=== PATIENT | male | born 1985 | race Caucasian/White ===

== ENCOUNTER 2021-10-20 19:17 | Emergency (ER) | payer SELFPAY ==
--- NOTE | ~2021-10-20 | XR_ITS ---
EXAM: [id number] HISTORY: KNI. ANT/LAT CHEST RT RIB PAIN X 1 DAY. COMPARISON: None available FINDINGS: Lungs are clear. Normal cardiomediastinal silhouette. Regional bones and soft tissues are normal for age. IMPRESSION: No acute finding in the chest or right ribs. Reviewed, dictated and finalized at location K.
[2021-10-20 19:30] VITALS: BP 133/79; PULSE 96; RESP 18; TEMP 36.9; O2SAT 99
--- NOTE | 2021-10-20 19:57 | ED.GENADULT ---
HPI - General Adult General Chief complaint: Abdominal Pain Stated complaint: Right Side Pain Time Seen by Provider: 10/20/21 19:57 Source: patient, RN notes reviewed and old records reviewed Mode of arrival: ambulatory Limitations: no limitations History of Present Illness HPI narrative: 36-year-old male who presents to [facility] with complaints of small tender lump to the right upper abdomen which he noticed today.He states is painful especially with sitting or any palpation to area. Raised tissue area along rib region/ upper abdominal rectus region which patient reports has been increasing in intensity as the day has progressed. 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 Onset (ago): day(s) (today) Related Data Allergies Allergy/AdvReac Type Severity Reaction Status Date / Time No Known Allergies Allergy Mild Verified 12/06/20 13:07 Review of Systems Review of Systems: CONSTITUTIONAL: Denies fever, chills, or sweats. EYES: Denies visual changes, redness, or discharge. ENT: Denies rhinorrhea, congestion, sore throat, or otalgia. CARDIOVASCULAR: Denies chest pain, tenderness along right lower rib area, no palpitations, or edema. RESPIRATORY: Denies cough or dyspnea. GASTROINTESTINAL: tenderness along upper rectus muscle area,no nausea, vomiting, or diarrhea, GENITOURINARY: Denies dysuria or hematuria. SKIN: Denies rash or itching. MUSCULOSKELETAL: Denies back pain, joint pain, or myalgia. NEUROLOGIC: Denies headache, numbness, or weakness. PSYCHIATRIC: Denies anxiety or depression. All systems reviewed & are unremarkable except as noted in HPI and below [facility] Past Medical History Medical History Family history of aortic aneurysm STD exposure Family History Family History Mother Asthma Sibling Family history of heart disease in male family member before age 55 Father Acute myocardial infarction Social History Social History Smoking status: Former smoker Second hand tobacco smoke exposure: No Alcohol intake: current Comments At time of signature, agree with nursing past medical, surgical, social and family history. There is no relevant family history pertinent to the presenting complaint Exam Narrative: GENERAL: Well-appearing, well-nourished, and in mild acute distress due to pain with movement.. HEAD: Normocephalic, atraumatic. EYES: PERRLA and EOMI. ENT: Nares clear, no rhinorrhea or epistaxis. Mucous membranes moist.Tm's normal with good light reflex, throat pink with no lesions or exudates or tonsil swelling NECK: Supple.No Lymphadenopathy CHEST: Clear to auscultation. No respiratory distress.no cough or pain with deep breathing SAO2 99% on room air HEART: Regular rate and rhythm. No murmur heard. Normal peripheral pulses. ABDOMEN: Soft, tender along right lower anterior rib area at right upper rectus abdominal muscle area with 2cm rounded tissue which is tender to palpation., nondistended, normal active bowel sounds. EXTREMITIES: Normal range of motion. No edema. SKIN: Warm, dry, no rash. NEURO: No focal deficits. Alert and oriented x3. Course Course Level of Care: Express Care Visit Vital Signs Vital signs: Vital Signs Temperature 36.9 C 10/20/21 19:30 Pulse Rate 96 10/20/21 19:30 Respiratory Rate 18 10/20/21 19:30 Blood Pressure 133/79 10/20/21 19:30 Pulse Oximetry 99 10/20/21 19:30 Temperature 36.9 C 10/20/21 19:30 Pulse Rate 96 10/20/21 19:30 Respiratory Rate 18 10/20/21 19:30 Blood Pressure 133/79 10/20/21 19:30 Pulse Oximetry 99 10/20/21 19:30 Medical Decision Making Differential Diagnosis
== END 2021-10-20 21:10 | disposition home or self-care (01) ==
PROVIDERS: Emergency Provider Registered Nurse
DX: S39.011A Strain of muscle, fascia and tendon of abdomen, initial encounter (principal); X58.XXXA Exposure to other specified factors, initial encounter; Z87.891 Personal history of nicotine dependence
CPT/HCPCS: 71101; 99213; G0463

== ENCOUNTER 2022-10-29 08:53 | Emergency (ER) | payer OTHER, SELFPAY ==
[2022-10-29 09:00] VITALS: BP 136/70; PULSE 69; RESP 18; TEMP 36.6; O2SAT 99
--- NOTE | 2022-10-29 09:10 | ED.URI ---
HPI - URI/Sore Throat General Chief Complaint: Upper Respiratory Infection Stated Complaint: Body Aches/Sore Throat Source: patient and RN notes reviewed History of Present Illness HPI Narrative: 37-year-old male presents to urgent care complaints of a sore throat and body aches that started this morning. Patient reports some nausea this morning but states that is normal for him. Patient denies any fevers, chest pain, shortness of breath, vomiting congestion, or ear pain. Some parts of this dictation were generated by voice recognition software and may contain typographical and/or grammatical inaccuracies. Related Data Allergies Allergy/AdvReac Type Severity Reaction Status Date / Time No Known Allergies Allergy Mild Verified 12/06/20 13:07 Review of Systems Review of Systems: Pertinent positives and pertinent negatives per HPI. [facility] Past Medical History Medical History Family history of aortic aneurysm STD exposure Family History Family History Mother Asthma Sibling Family history of heart disease in male family member before age 55 Father Acute myocardial infarction Social History Social History Smoking status: Former smoker Second hand tobacco smoke exposure: No Alcohol intake: current Comments At the time of my signature, I reviewed and agree with the nursing past medical, surgical, social, and family history. There is no relevant family history pertinent to the patient complaint. Exam Narrative: GENERAL: This is a well-nourished, well-developed patient, in no apparent distress. HEAD: normocephalic, atraumatic. EYES: Sclera clear/white. Vision is grossly intact. EARS: External ears normal, auditory canals clear and without drainage, TMs normal without perforation. Hearing grossly intact. NOSE: External nose normal with no obvious nasal discharge, nares without redness, no rhinorrhea. THROAT: Mucous membranes moist, posterior pharynx erythemic. No exudate noted. NECK: Neck supple, non-tender without lymphadenopathy, masses or thyromegaly. CARDIOVASCULAR: Regular rate RESPIRATORY: No respiratory distress SKIN: warm, intact with no suspicious lesions or rash, good texture and turgor. NEURO: awake, alert, and oriented to person, place and time. There were no obvious focal neurologic abnormalities. Course Course Level of Care: Express Care Visit Vital Signs Vital signs: Vital Signs Temperature 97.8 F 10/29/22 09:00 Pulse Rate 69 10/29/22 09:00 Respiratory Rate 18 10/29/22 09:00 Blood Pressure 136/70 10/29/22 09:00 Pulse Oximetry 99 10/29/22 09:00 Oxygen Delivery Room Air 10/29/22 09:00 Temperature 97.8 F 10/29/22 09:00 Pulse Rate 69 10/29/22 09:00 Respiratory Rate 18 10/29/22 09:00 Blood Pressure 136/70 10/29/22 09:00 Pulse Oximetry 99 10/29/22 09:00 Oxygen Delivery Room Air 10/29/22 09:00 Reviewed MDM - URI/Sore Throat MDM Narrative Medical decision making narrative: Rapid strep is negative in the office; however we will send to the lab for confirmation; there is a small percentage chance that it can come back positive; if it is, we will call you in 2-3days; and your prescription will be call in to your pharmacy. However, there is NO indication for antibiotic at this time. -Increase your fluids and Vitamin C. -Oral rinses such as: Salt water gargles and/or may use topical anesthetic (eg. Chloraseptic spray) or lozenges to relieve dryness or throat pain. -Take tylenol and ibuprofen as needed for pain and fever as directed. -Frequent hand washing or hand nurse staff industrial is one of the best ways to prevent spread of infection. -Follow up with primary care provider in 2-3 days if condition is not improving or seek ER visit if your child starts breathing fast/has trouble breathing, is not drinki
== END 2022-10-29 09:41 | disposition home or self-care (01) ==
PROVIDERS: Emergency Provider Nurse Practitioner Family
DX: J02.9 Acute pharyngitis, unspecified (principal); Z87.891 Personal history of nicotine dependence
CPT/HCPCS: 87081; 87880; 99213; G0463

== ENCOUNTER 2023-03-18 02:38 | Day surgery (SDC) | payer OTHER, SELFPAY ==
[2023-03-09 14:57] VITALS: BMI 26.8
--- NOTE | 2023-03-09 15:04 | PC.NURSE ---
Report to the Outpatient Waiting Room, entrance under the green pavilion located off [facility], at time _1000_ on date 03/18/23_. Planned Procedure Time: _1200 . Time changes happen often and if your time is changed the preop area will call you the afternoon before. - You and your visitor will be asked to self-screen and do not enter if you have any COVID symptoms. - A mask is optional within the hospital at this time. Patients may have clear liquids (water, carbonated beverages, clear teas, apple juice) until 3 hours prior to surgery with a maximum of 20 ounces. - No food from midnight until time of surgery - Infants may have breast milk until 4 hours before surgery, formula 6 hours prior to surgery. - Children will be allowed to drink immediately following surgery. If applicable, please bring a bottle or sippy cup to assist with drinking. Juice, water, soda, and popsicles are readily available. For infants on formula, please bring formula the day of surgery. Pacifiers are allowed. Take the following medications with a SIP of water the morning of surgery: _DULOXETINE DO NOT STOP ANY OF YOUR OTHER PRESCRIPTION MEDICATIONS PRIOR TO SURGERY ?EXCEPT THE FOLLOWING Medications to discontinue per physician VITAMINS/ SUPPLIMENTS Date to take last dose 03/15/23 Please no make-up, nail puerto rican, hairspray, perfume, deodorant, or body powder the day of surgery. No jewelry (including any body piercings) or valuables the day of surgery, leave them at home. Please take a shower or bath the night before, or the morning of, surgery with HIBICLENS antibacterial soap. Wear comfortable, loose fitting clothing. Children are encouraged to wear pajamas. - Jewelry must be removed prior to entering the operating room. Rings and piercings that are not removed may be cut off. - The hospital will not accept responsibility for valuables. - Please leave all valuables, including medications, at home the day of surgery. If you are going home after surgery, a licensed city driver must drive you home. - NO public transportation without another adult if you receive anesthesia. - We recommend that an adult stay with you for 24 hours following discharge. - We also recommend that you do not drive, make important decision, drink alcoholic beverages, or take any drugs that were not prescribed by your health care provider for at least 24 hours after your discharge time. For Pediatric surgeries, we recommend two adults accompany the child home. Follow any additional instructions given to you from your surgeon. If you or anyone in your household have experienced Covid symptoms in the past week, please notify your surgeon or the nurse liaison at the phone number below for possible testing. Telephone instructions given to PATIENT_and asked if any additional questions and then verbalized understanding. Patient advised to call surgeon office or pre surgery nurse liaison [phone] if any additional questions.
[2023-03-18 10:03] VITALS: BP 134/74; PULSE 93; RESP 14; TEMP 36.8; O2SAT 98; BMI 26.9
[2023-03-18] MEDS: LACTATED RINGERS 1,000 ML 30 ML IV CONT (10:25)
--- NOTE | 2023-03-18 11:20 | WPDANESEPPF ---
Anes - Initial Pre Proc Eval Procedure: Operation Date: 03/18/23 12:00 Proposed Procedures p Excisional Biopsy Right Upper Abdominal Mass - Meaghan Da Silva MD Date/Time: 03/18/23 11:20 Surgeon: Meaghan Da Silva MD Pre Op Diagnosis: Rt Upper Abdominal Mass Patient Data Age: 37 Gender: M Height: 1.73 m Weight: 80.4 kg Last Vital Signs Temp 36.8 C 03/18/23 10:03 Pulse 93 03/18/23 10:03 Resp 14 03/18/23 10:03 BP 134/74 03/18/23 10:03 Pulse Ox 98 03/18/23 10:03 O2 Del Method Room Air 03/18/23 10:03 Allergies Allergy/AdvReac Type Severity Reaction Status Date / Time No Known Allergies Allergy Mild Verified 03/18/23 10:13 Home Medications Medication Instructions Recorded Confirmed Type duloxetine 60 mg capsule,delayed 60 mg PO BID #60 caps 03/02/23 03/09/23 Rx release hydroxyzine pamoate 100 mg capsule 100 mg PO Q6H PRN anxiety #30 caps 03/02/23 03/09/23 Rx ramelteon 8 mg tablet 8 mg PO QHS PRN sleep #90 tabs 03/02/23 03/09/23 Rx glucosamine sulf dipot 1 cap PO DAILY 03/09/23 03/18/23 History chlr,msm,chond 550 mg-C 30 mg-nicole 1 mg capsule (Glucosamine Chondroitin) multivit with minerals-iron 18 1 tablet PO DAILY 03/09/23 03/18/23 History mg-folic ac 400 mcg-vit K 25 mcg tablet (Adults Multivitamin) Patient hx anesthesia problems: none Family hx anesthesia problems: none Results Review: All pre-operative results and documents have been reviewed as part of the pre-operative evaluation. [facility] Past Medical History Medical History Chronic neck pain Encounter for preventative adult health care examination Family history of aortic aneurysm STD exposure Tobacco dependence Family History Family History Mother Asthma Sibling Family history of heart disease in male family member before age 55 Father Acute myocardial infarction Social History Social History Smoking packs per day: 0.25 Smoking cigarettes per day: 5.0 Years smoked: 6 Smoking pack-years: 1.50 Smoking status: Current every day smoker Tobacco type: e-cigarettes/vaping Second hand tobacco smoke exposure: No Additional smoking assessment comments: VAPING FOR 2 YEARS Alcohol intake: current Drinks per week: 1 Alcohol use details: occasional Substance use: current Substance use type: marijuana Other substance usage details: NIGHTLY Lack of Transportation: No Lack of Food: Never True Current Housing: I Have Housing Concerned About Future Housing: No Difficulty Paying Gas/Electric Bills: No Difficulty Paying for Meds: No Currently Unemployed: No Education: High School Diploma/GED Difficulty w/ Childcare or Family Care: No Living arrangements: alone Anes - Eval Final PreProcedure Day of Procedure 03/18/23 11:20 Patient weight: overweight Heart: regular rate and rhythm Lungs: clear to auscultation Airway: Mallampati scale class II Neurological: alert and oriented Last oral intake: >/= 8 hours ASA classification: III Emergent: no Anesthetic plan: proceed Anesthesia type and monitoring: general GIVS and standard monitoring Results Review: All pre-operative results and documents have been reviewed as part of the pre-operative evaluation. Informed Consent: The patient's anesthetic plan and its attendant risks and benefits were discussed with the patient/family/POA. Questions were solicited and answers provided to the satisfaction of the patient/family/POA.
--- NOTE | 2023-03-18 11:29 | WPDHPUPDATE1 ---
History and Physical Update Update Date/Time: 03/18/23 11:29 History and Physical has been reviewed, including an updated exam of the patient. There are NO changes in the patient's condition. Risks, benefits, and alternatives have been discussed and questions answered. Patient agrees to proceed with procedure.
[2023-03-18] MEDS: ceFAZolin 2 GM/D5W 50 ML 2 GM/50 ML BAG IVPB (11:44)
[2023-03-18] MEDS: KETOROLAC 30 MG/ML VIAL (*BKC) IV PUSH (11:58)
[2023-03-18 12:23] VITALS: BP 92/46; PULSE 70; RESP 16; O2SAT 94
--- NOTE | 2023-03-18 12:28 | W.PM.PROC2 ---
Procedure Note - Detailed Date of Procedure 03/18/23 Pre-op Diagnosis Rt Upper Abdominal Mass Post-op Diagnosis Same Procedure Performed Excisional biopsy right upper abdominal mass measuring approximately 5 x 4 cm Surgeon Meaghan Da Silva MD Anesthesia MAC and Local Indications right upper abdominal mass slowly growing in size and symptomatology Findings 5 x 4 cm well-circumscribed mass all contained within the subcutaneous tissue most consistent with lipoma Description of Procedure The patient was taken to the operating room and placed in the supine position. After adequate induction of MAC anesthesia, the patient was prepped and draped in the normal sterile fashion. A time-out was then done to verify the patient's identity, as well as the procedure being performed. Local anesthetic was placed over the anticipated incision site. I then made an incision with the 10 blade scalpel over the mass in the right upper abdomen. This was carried down into the subcutaneous tissue. A well-circumscribed mass was encountered in the subcutaneous tissue. This mass was most consistent with a lipoma. I was able to bluntly dissect around this mass and removed the mass in full. Mass measured approximately 5 x 4 cm. Once completely excised, I explored the cavity and no other pathology was noted. Hemostasis was gained with the Bovie cautery. I then closed the subcutaneous tissue using 3-0 Vicryl suture. The skin was closed with 4-0 Monocryl subcuticular suture. Dermabond was placed on the wound. The patient tolerated the procedure well. He was alert and awake in the operating room postoperatively and will be transferred to the recovery room in stable condition. Estimated Blood Loss 5 Drains No Packing No Pathology Yes Complications No immediate complications Condition Stable Disposition PACU [facility] Billing Surgery - Charge Forward: Surgery Billing
[2023-03-18 12:35] VITALS: BP 100/50; PULSE 70; RESP 16; O2SAT 94
[2023-03-18 12:50] VITALS: BP 92/46; PULSE 80; RESP 16; O2SAT 94
[2023-03-18 13:15] VITALS: BP 113/71; PULSE 60; RESP 16
== END 2023-03-18 13:35 | disposition home or self-care (01) ==
PROVIDERS: PCP Nurse Practitioner Family; Visit Provider Surgery
PROC: (CPT 22903; principal; 2023-03-18 12:00)
DX: D17.1 Benign lipomatous neoplasm of skin and subcutaneous tissue of trunk (principal); F17.290 Nicotine dependence, other tobacco product, uncomplicated; F12.90 Cannabis use, unspecified, uncomplicated
CPT/HCPCS: 22903; 88304; J0690; J1885; J2250; J2405; J2704; J3010; J7120

== ENCOUNTER 2023-08-05 16:55 | Outpatient (CLI) | payer OTHER, SELFPAY ==
--- NOTE | ~2023-08-05 | XR_ITS ---
EXAMINATION: XR ankle RT min 3V DATE: 08/05/2023 17:09 INDICATION: Unspecified injury of right lower leg, initial encounter. TECHNIQUE: 4 views of right ankle were obtained. COMPARISON: None. FINDINGS: Bone alignment is normal. No fracture. Joint spaces are normal. IMPRESSION: 1. Normal right ankle. Reviewed, dictated and finalized at location E. 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 Normal right ankle.
== END 2023-08-05 16:56 | disposition home or self-care (01) ==
LOC: ANHIMG 16:59
PROVIDERS: PCP Nurse Practitioner Family; Visit Provider Nurse Practitioner Family
DX: S89.91XA Unspecified injury of right lower leg, initial encounter (principal); X58.XXXA Exposure to other specified factors, initial encounter
CPT/HCPCS: 73610

== ENCOUNTER 2023-11-26 12:27 | Outpatient (CLI) | payer OTHER, SELFPAY ==
--- NOTE | ~2023-11-26 | XR_ITS ---
AP and lateral views of the right hip Clinical history: Pain Findings: No acute fracture or dislocation is seen. Osseous alignment is anatomic. Right hip joint is preserved. Soft tissues are unremarkable. Impression: No significant abnormality is seen. Reviewed, dictated and finalized at location M. Impression: No significant abnormality is seen.
--- NOTE | ~2023-11-26 | XR_ITS ---
Thoracic spine: Clinical Indication: Back pain AP and lateral views were performed. No fracture is seen. There is normal alignment of the vertebrae. The intervertebral disc spaces appe ar normal. Paravertebral soft tissues appear normal. Impression: No significant abnormalities noted. Reviewed, dictated and finalized at [facility]. Impression: No significant abnormalities noted.
--- NOTE | ~2023-11-26 | XR_ITS ---
Lumbosacral Spine: AP and lateral views Clinical History: Pain Findings: The normal lordotic curve is maintained. The vertebral bodies and posterior elements are i ntact. The intervertebral disc spaces are preserved. The sacroiliac joints are normally outlined. Impression: No significant abnormality. Reviewed, dictated and finalized at [facility]. Impression: No significant abnormality.
== END 2023-11-26 12:28 | disposition home or self-care (01) ==
LOC: ANHIMG 12:28
PROVIDERS: PCP Nurse Practitioner Family; Visit Provider Nurse Practitioner Family
DX: M25.551 Pain in right hip (principal); G89.29 Other chronic pain
CPT/HCPCS: 72070; 72100; 73502

== ENCOUNTER 2024-02-13 16:24 | Emergency (ER) | payer OTHER, SELFPAY ==
[2024-02-13 16:29] VITALS: BP 131/81; PULSE 99; RESP 16; TEMP 36.9; O2SAT 97
--- NOTE | 2024-02-13 17:04 | ED.GENADULT ---
HPI - General Adult General Chief complaint: Wound/Laceration Stated complaint: Insect Bite Source: patient Mode of arrival: ambulatory Limitations: no limitations History of Present Illness HPI narrative: Patient presents for evaluation of what he believes to be a brown recluse bite to the right forearm. Symptom onset 2 days ago. He believes that he sustained the bite the day prior to visualizing the wound. He denies any fever, chills, nausea, vomiting. He is not diabetic. He noted some purulent drainage from the lesion yesterday. Related Data Home Medications Medication Instructions Recorded Confirmed glucosamine sulf dipot 1 cap PO DAILY 03/09/23 12/21/23 chlr,msm,chond 550 mg-C 30 mg-nicole 1 mg capsule (Glucosamine Chondroitin) multivit with minerals-iron 18 1 tablet PO DAILY 03/09/23 12/21/23 mg-folic ac 400 mcg-vit K 25 mcg tablet (Adults Multivitamin) Allergies Allergy/AdvReac Type Severity Reaction Status Date / Time No Known Allergies Allergy Mild Verified 02/13/24 16:25 Review of Systems Review of Systems: CONSTITUTIONAL: Denies fever, chills, or sweats. EYES: Denies visual changes, redness, or discharge. ENT: Denies rhinorrhea, congestion, sore throat, or otalgia. CARDIOVASCULAR: Denies chest pain, palpitations, or edema. RESPIRATORY: Denies cough or dyspnea. GASTROINTESTINAL: Denies abdominal pain, nausea, vomiting, or diarrhea. GENITOURINARY: Denies dysuria or hematuria. SKIN: Reports skin lesion to right forearm that was draining purulent fluid yesterday MUSCULOSKELETAL: Denies back pain, joint pain, or myalgia. NEUROLOGIC: Denies headache, numbness, dizziness, or weakness. PSYCHIATRIC: Denies anxiety or depression. [facility] Past Medical History Medical History Abdominal mass, right upper quadrant Chronic neck pain Encounter for preventative adult health care examination Encounter for surgical aftercare following surgery on the skin and subcutaneous tissue Family history of aortic aneurysm Lipoma of abdominal wall STD exposure Tobacco dependence Surgical History Surgical History History of excision of mass excisional biopsy right upper abdominal mass measuring approximately 5 x 4 cm on 03/18/23 PDC Family History Family History Mother Asthma Sibling Family history of heart disease in male family member before age 55 Father Acute myocardial infarction Social History Social History Smoking packs per day: 0.25 Smoking cigarettes per day: 5.0 Years smoked: 6 Smoking pack-years: 1.50 Smoking status: Current every day smoker Tobacco type: e-cigarettes/vaping Second hand tobacco smoke exposure: No Additional smoking assessment comments: VAPING FOR 2 YEARS Alcohol intake: current Drinks per week: 1 Alcohol use details: occasional Substance use: current Substance use type: marijuana Other substance usage details: NIGHTLY Lack of Transportation: No Lack of Food: Never True Current Housing: I Have Housing Concerned About Future Housing: No Difficulty Paying Gas/Electric Bills: No Difficulty Paying for Meds: No Currently Unemployed: No Education: High School Diploma/GED Difficulty w/ Childcare or Family Care: No Living arrangements: alone Exam Narrative: GENERAL: Well-appearing, well-nourished, and in no acute distress. HEAD: Normocephalic, atraumatic. EYES: PERRLA and EOMI. ENT: Nares clear, no rhinorrhea or epistaxis. Mucous membranes moist. Oropharynx without tonsillar hypertrophy exudate or other lesions. Bilateral TMs pearly wahl nonbulging NECK: Supple. No adenopathy or masses. No carotid bruits or JVD CHEST: Clear to auscultation. No respiratory distress. No wheezes rales o
== END 2024-02-13 16:43 | disposition home or self-care (01) ==
PROVIDERS: Emergency Provider Nurse Practitioner
DX: S50.861A Insect bite (nonvenomous) of right forearm, initial encounter (principal); W57.XXXA Bitten or stung by nonvenomous insect and other nonvenomous arthropods, initial encounter; F17.290 Nicotine dependence, other tobacco product, uncomplicated; F12.90 Cannabis use, unspecified, uncomplicated
CPT/HCPCS: 99213; G0463

== ENCOUNTER 2024-04-06 09:43 | Outpatient (CLI) | payer OTHER, SELFPAY ==
--- NOTE | ~2024-04-06 | US_ITS ---
EXAMINATION: US soft tissue groin LT DATE: 04/06/2024 10:47 INDICATION: R10.32 - Left lower quadrant pain . TECHNIQUE: Grayscale and Doppler ultrasound images of the left groin soft tissues were obtained. COMPARISON: Ultrasound scrotum 04/06/2024; CT abdomen pelvis 06/18/2017 FINDINGS: Sonographic interrogation of the area of clinical concern in the left groin revealed no cys tic mass or hernia, and no change with the Valsalva maneuver. 2.3 x 0.6 x 1.8 cm lymph node, with nor mal cortical thickness, short axis diameter, and fatty hilum. IMPRESSION: No sonographic abnormality detected in the area of clinical concern. Reviewed, dictated and finalized at location K.
--- NOTE | ~2024-04-06 | US_ITS ---
EXAMINATION: US scrotum doppler DATE: 04/06/2024 10:47 INDICATION: Left testicular pain TECHNIQUE: Testicular sonogram utilizing grayscale and Doppler COMPARISON: None. FINDINGS: The right testis measures 5.3 x 2.4 x 3.7 cm. The left testis measures 4.9 x 2.4 x 3.6 cm. Symmetric normal grayscale appearance to both testes. There is normal vascular flow to both testes. 2 mm right epididymal head cyst. The right epididymis is otherwise normal with normal vascular flow. The left ep ididymis is normal with normal vascular flow. There is no varicocele or hydrocele. IMPRESSION: 1. 2 mm right epididymal head cyst. Otherwise normal scrotal ultrasound. Reviewed, dictated and finalized at location A.
[2024-04-06 11:36] LABS: Appearance Urine Clear (Clear); Color Urine Yellow (Yellow); Protein Urine Negative (Negative)
[2024-04-06 11:37] LABS: Add Urine Microscopic? NO; Bilirubin Urine Negative (Negative); Blood Urine Negative (Negative); Glucose Urine UA Negative (Negative); Ketones Urine Negative (Negative); Leukocyte Esterase Ur Negative LEU/UL (Negative); Nitrate Urine Negative (Negative); Urobilinogen Urine 0.2 mg/dL (<2.0)
[2024-04-06 13:01] LABS: Chlamydia trachomatis NOT DETECTED (NOT DETECTE); Neisseria gonorrhoeae PCR NOT DETECTED (NOT DETECTE)
== END 2024-04-06 09:44 | disposition home or self-care (01) ==
LOC: ANHIMG 09:44
PROVIDERS: PCP Nurse Practitioner Family; Visit Provider Nurse Practitioner Family
DX: R10.32 Left lower quadrant pain (principal); N50.812 Left testicular pain; N50.3 Cyst of epididymis
CPT/HCPCS: 76870; 76882; 81003; 87086; 87491; 87591; 93976

== ENCOUNTER 2024-04-07 13:57 | Emergency (ER) | payer OTHER, SELFPAY ==
--- NOTE | 2024-04-07 14:12 | ED.SKABFB ---
HPI - Skin/Abscess/Foreign Bdy General Chief complaint: Skin/Abscess/Foreign Body Stated complaint: spot on back of left knee Time Seen by Provider: 04/07/24 14:12 Source: patient Mode of arrival: ambulatory Limitations: no limitations History of Present Illness HPI narrative: 38-year-old male presents with complaint insect bite to posterior aspect of left knee. Complaining of itching with mild pain. Concern for brown recluse bite. Has had brown recluse spiders in his house in the past. Afebrile. all systems reviewed and negative except as noted above. Related Data Home Medications Medication Instructions Recorded Confirmed glucosamine sulf dipot 1 cap PO DAILY 03/09/23 03/31/24 chlr,msm,chond 550 mg-C 30 mg-nicole 1 mg capsule (Glucosamine Chondroitin) multivit with minerals-iron 18 1 tablet PO DAILY 03/09/23 03/31/24 mg-folic ac 400 mcg-vit K 25 mcg tablet (Adults Multivitamin) Allergies Allergy/AdvReac Type Severity Reaction Status Date / Time No Known Allergies Allergy Mild Verified 03/31/24 13:57 Review of Systems Review of Systems: CONSTITUTIONAL: Denies fever, chills, or sweats. EYES: Denies visual changes, redness, or discharge. ENT: Denies rhinorrhea, congestion, sore throat, or otalgia. CARDIOVASCULAR: Denies chest pain, palpitations, or edema. RESPIRATORY: Denies cough or dyspnea. GASTROINTESTINAL: Denies abdominal pain, nausea, vomiting, or diarrhea. GENITOURINARY: Denies dysuria or hematuria. SKIN: Reports itching, redness to posterior left knee. MUSCULOSKELETAL: Denies back pain, joint pain, or myalgia. NEUROLOGIC: Denies headache, numbness, or weakness. PSYCHIATRIC: Denies anxiety or depression. All other systems reviewed are negative, except as documented in HPI. [facility] Past Medical History Medical History Abdominal mass, right upper quadrant Chronic neck pain Encounter for preventative adult health care examination Encounter for surgical aftercare following surgery on the skin and subcutaneous tissue Family history of aortic aneurysm Lipoma of abdominal wall STD exposure Tobacco dependence Surgical History Surgical History History of excision of mass excisional biopsy right upper abdominal mass measuring approximately 5 x 4 cm on 03/18/23 PDC Family History Family History Mother Asthma Sibling Family history of heart disease in male family member before age 55 Father Acute myocardial infarction Social History Social History Smoking packs per day: 0.25 Smoking cigarettes per day: 5.0 Years smoked: 6 Smoking pack-years: 1.50 Smoking status: Current every day smoker Tobacco type: e-cigarettes/vaping Second hand tobacco smoke exposure: No Additional smoking assessment comments: VAPING FOR 2 YEARS Alcohol intake: current Drinks per week: 1 Alcohol use details: occasional Substance use: current Substance use type: marijuana Other substance usage details: NIGHTLY Lack of Transportation: No Lack of Food: Never True Current Housing: I Have Housing Concerned About Future Housing: No Difficulty Paying Gas/Electric Bills: No Difficulty Paying for Meds: No Currently Unemployed: No Education: High School Diploma/GED Difficulty w/ Childcare or Family Care: No Living arrangements: alone Comments At time of signature, agree with nursing past medical, surgical, social and family history. There is no relevant family history pertinent to the presenting complaint. Exam Narrative: GENERAL: This is a well-nourished, well-developed patient, in no apparent distress. HEAD: normocephalic, atraumatic. EYES: PERRL. Sclera clear/white. Vision is grossly intact. EARS: External ears normal NOSE: External nose mary
[2024-04-07 14:13] VITALS: BP 117/84; PULSE 88; RESP 20; TEMP 37; O2SAT 100
== END 2024-04-07 14:20 | disposition home or self-care (01) ==
PROVIDERS: Emergency Provider Nurse Practitioner Family; PCP Nurse Practitioner Family
DX: S80.861A Insect bite (nonvenomous), right lower leg, initial encounter (principal); F17.290 Nicotine dependence, other tobacco product, uncomplicated; W57.XXXA Bitten or stung by nonvenomous insect and other nonvenomous arthropods, initial encounter
CPT/HCPCS: 99213; G0463

== ENCOUNTER 2024-12-07 10:02 | Outpatient (CLI) | payer OTHER, SELFPAY ==
--- NOTE | ~2024-12-07 | XR_ITS ---
Left Shoulder Technique: AP and axillary views were obtained. Clinical History: Pain Findings: No fracture or dislocation is seen. Osseous alignment is anatomic. The glenohumeral and acr omioclavicular joint spaces are preserved. Soft tissues are unremarkable. Impression: Unremarkable left shoulder radiographs. Reviewed, dictated and finalized at [place] [facility]. Impression: Unremarkable left shoulder radiographs.
--- OUTSIDE RECORDS SUMMARY | 2024-12-07 10:10 | XMS_ITS | Clinical Summary ---
Author Organization [facility] [address] Address [address] [place] [id number] Care Team Providers Care Atmospheric Chemist Name Role Phone Madeline Dolan NP Primary Care Provider [phone] Allergies No known active allergies Medications DULoxetine DR (CYMBALTA) 60 mg capsule Take 1 capsule (60 mg total) by mouth 2 (two) times a day 03/26/2023 Active hydrOXYzine (VISTARIL) 100 mg capsule TAKE 1 CAPSULE BY MOUTH EVERY 6 HOURS NEEDED FOR ANXIETY 03/02/2023 Active lidocaine (LIDODERM) 5 % Place 1 patch on the skin daily for 14 days Remove & discard patch within 12 hours or as directed by MD. 14 patch 07/29/2023 Active methocarbamoL (ROBAXIN) 500 mg tablet Take 1 tablet (500 mg total) by mouth 2 (two) times a day 20 tablet 07/29/2023 Active HYDROcodone-gucci taminophen (NORCO) 5-325 mg per tabletIndicatio ns:Pain Take 1 tablet by mouth every 6 (six) hours as needed for pain for up to 3 doses 3 tablet 07/29/2023 Active Active Problems No known active problems Encounters Date Type Department Care Team Description 10/06/2024 2:45 PM CDT Therapy [facility] [place] [address] Donna Mcgee, PT Pain in right hip (Primary Dx) from Last 3 Months Social History Tobacco Use Types Packs/Day Years Used Date Smoking Tobacco: Never Assessed Personal Safety Answer Date Recorded Have you ever been in or are you currently in a harmful physical or emotional relationship or is someone making you feel afraid or unsafe? Denies 07/29/2023 Sex and Gender Information Value Date Recorded Sex Assigned at Not on file Legal Sex Male 12:03 PM IRONER SOCK Gender Identity Not on file Sexual Orientation Not on file Obstetrics History Last Filed Vital Signs Vital Sign Reading Time Taken Comments Blood Pressure 147/95 07/29/2023 10:40 PM IRONER SOCK Pulse 83 07/29/2023 10:40 PM IRONER SOCK Temperature 36.5 C (97.7 F) 07/29/2023 7:50 PM IRONER SOCK Respiratory Rate 16 07/29/2023 10:40 PM IRONER SOCK Oxygen Saturation 100% 07/29/2023 10:40 PM IRONER SOCK Inhaled Oxygen Concentration - - Weight 81.6 kg (180 lb) 07/29/2023 7:50 PM IRONER SOCK Height 172.7 cm (5' 8) 06/02/2023 12:19 PM IRONER SOCK Body Mass Index 27.37 06/02/2023 12:19 PM IRONER SOCK Plan of Treatment Health Maintenance Due Date Last Done Comments Depression Screening 1987 Hepatitis C Screening 1987 Varicella Vaccines (1 of 2 - 13+ 2-dose series) 2000 Hepatitis B Screening 2005 Regular Well Visit/Exam 18-64 2005 Influenza Vaccine (Season Ended) 2025 05/08/2023, 06/14/2022 DTaP/Tdap/Td Vaccine (3 - Td or Tdap) 04/30/2033 04/30/2023, 12/12/2016 HPV Vaccines Aged Out No longer eligi ble based on patient's age to complete this topic Pneumococcal vaccine <65 Aged Out No longer eligible based on patient's age to complete this topic Insurance [facility] Care Teams Atmospheric Chemist Relationship Specialty Start Date End Date Madeline Dolan NP [address] [place] [address] PCP - General Family Medicine 06/02/23
--- OUTSIDE RECORDS SUMMARY | 2024-12-07 10:10 | XMS_ITS | Clinical Summary ---
Author Organization [facility] Address [address] [place] [address] Phone Care Team Providers Care Manager User Interface Name Role Phone Madeline Dolan APRN, CNP Primary Care Provider Donavan Teixeira MD Unavailable Allergies No known active allergies Medications ALPRAZolam (XANAX) 0.25 MG Tablet Take 0.25 mg by mouth. 04/15/2024 Active buPROPion (WELLBUTRIN) 150 MG XL tablet TAKE 1 TABLET BY MOUTH EVERY MORNING FOR 2 WEEKS 03/31/2024 Active busPIRone (BUSPAR) 10 MG Tablet Take 10 mg by mouth 2 times daily. 02/26/2024 Active cyclobenzaprine (FLEXERIL) 5 MG Tablet Take 5 mg by mouth 3 times daily as needed for Muscle spasms. 02/12/2024 Active Immunizations Immunization Administration Dates Next Due Influenza Vaccine, MDCK,quadrivalent, pres free 05/08/2023 Influenza Vaccine, Quadrivalent, PF 06/14/2022 TDAP Vaccine 04/30/2023,12/12/2016 Social History Tobacco Use Types Packs/Day Years Used Date Smoking Tobacco: Former Cigarettes Smokeless Tobacco: Never Alcohol Use Standard Drinks/Week Comments Yes 0 (1 standard drink = 0.6 oz pur e alcohol) Rare Sexually Active Control Partners Comments Not Currently Sex and Gender Information Value Date Recorded Sex Assigned at Not on file Legal Sex Male 2:19 PM CDT Gender Identity Not on file Sexual Orientation Not on file Last Filed Vital Signs Vital Sign Reading Time Taken Comments Blood Pressure 130/82 04/27/2024 8:48 AM CDT Pulse 80 04/27/2024 8:48 AM CDT Temperature - - Respiratory Rate 16 04/27/2024 8:48 AM CDT Oxygen Saturation 97% 04/27/2024 8:48 AM CDT Inhaled Oxygen Concentration - - Weight 83 kg (183 lb) 04/27/2024 8:48 AM CDT Height 170.2 cm (5' 7) 04/27/2024 8:48 AM CDT Body Mass Index 28.66 04/27/2024 8:48 AM CDT Plan of Treatment Health Maintenance Due Date Last Done Comments Hepatitis C Virus (HCV) Screening 1987 Hepatitis B Immunization (1 of 3 - 19+ 3-dose series) 2006 Influenza Immunization (#1) 2024 05/08/2023, 1 08/15/2021 SARS-COV-2 Immunization ( season) 2024 05/08/2023, 06/14/2021, 10/21/2020, Additional history exists Td Immunization Every 10 Years (Adults With 1 Tdap) 04/30/2033 04/30/2023, 12/12/2016 Respiratory Syncytial Virus (RSV) Immunization (Adult) (1 - 1-dose 75+ series) 2062 TdaP Immunization Discontinued 04/30/2023, 12/12/2016 Meningococcal Immunization (ACWY) Aged Out No longer eligible based on patient's age to complete this topic Pneumococcal Immunization Combined Aged Out No longer eligible based on patient's age to complete this topic Rotavirus Immunization Aged Out No lo nger eligible based on patient's age to complete this topic Insurance MEDICAID [employer] Care Teams Manager User Interface Relationship Specialty Start Date End Date Madeline Dolan APRN, ERICK [address] [place], [place] [id number] PCP - General Advanced Practice Nurse 04/27/24 Donavan Teixeira MD [address] [facility] [address] [place] [address] Consulting Physician Urology 04/27/24
--- OUTSIDE RECORDS SUMMARY | 2024-12-07 10:10 | XMS_ITS | Referral Summary ---
Author Organization [facility] [address] Address [address] [place] [id number] Care Team Providers Care Medical Physiologist Name Role Phone Madeline Dolan NP Primary Care Provider [phone] Encounters Date Type Department Care Team Description 10/06/2024 2:45 PM CDT Therapy [facility] Physical [facility] - [place] [address] [place] [address] Donna Mcgee, ZOYA Pain in right hip (Primary Dx) from Last 3 Months Allergies No known active allergies Medications DULoxetine (CYMBALTA) 60 mg capsule Take 1 capsule (60 mg total) by mouth 2 (two) times a day 03/26/2023 Active hydrOXYzine (VISTARIL) 100 mg capsule TAKE 1 CAPSULE BY MOUTH EVERY 6 HOURS NEEDED FOR ANXIETY 03/02/2023 Active lidocaine (LIDODERM) 5 % Place 1 patch on the skin daily for 14 days Remove & discard patch within 12 hours or as directed by 14 patch 07/29/2023 Active methocarbamoL (ROBAXIN) 500 mg tablet Take 1 tablet (500 mg total) by mouth 2 (two) times a day 20 tablet 07/29/2023 Active HYDROcodone-gucci taminophen (NORCO) 5-325 mg per tabletIndicatio ns:Pain Take 1 tablet by mouth every 6 (six) hours as needed for pain for up to 3 doses 3 tablet 07/29/2023 Active Active Problems No known active problems Social History Tobacco Use Types Packs/Day Years Used Date Smoking Tobacco: Never Assessed Personal Safety Answer Date Recorded Have you ever been in or are you currently in a harmful physical or emotional relationship or is someone making you feel afraid or unsafe? Denies 07/29/2023 Sex and Gender Information Value Date Recorded Sex Assigned at Not on file Legal Sex Male 12:03 PM LONG TERM Gender Identity Not on file Sexual Orientation Not on file Last Filed Vital Signs Vital Sign Reading Time Taken Comments Blood Pressure 147/95 07/29/2023 10:40 PM LONG TERM Pulse 83 07/29/2023 10:40 PM LONG TERM Temperature 36.5 C (97.7 F) 07/29/2023 7:50 PM LONG TERM Respiratory Rate 16 07/29/2023 10:40 PM LONG TERM Oxygen Saturation 100% 07/29/2023 10:40 PM LONG TERM Inhaled Oxygen Concentration - - Weight 81.6 kg (180 lb) 07/29/2023 7:50 PM LONG TERM Height 172.7 cm (5' 8) 06/02/2023 12:19 PM LONG TERM Body Mass Index 27.37 06/02/2023 12:19 PM LONG TERM Plan of Treatment Not on file Insurance [facility] Care Teams Medical Physiologist Relationship Specialty Start Date End Date Madeline Dolan NP [address] [place] [address] PCP - General Family Medicine 06/02/23
--- OUTSIDE RECORDS SUMMARY | 2024-12-07 10:10 | XMS_ITS | Patient Health Record ---
Author Organization [facility] Address [address] [place] [address] Care Team Providers Care Church Worker Name Role Phone Heidi Allen Primary Care Provider Selam Morris Unavailable [phone] Allergies No Known Allergies Reason For Referral Reason Therapy Diagnosis 1 Major depression (F3 2.9) Diagnosis 2 Generalized anxiety disorder (F41.1) Referral Organization [facility] Referring Provider First Name Heidi Referring Provider Last Name Alejandro Referring Provider Speciality Psychiatry Referred Provider Specialty Behavioral H [facility] General Notes Heidi Allen 11/2024 02:12:54 PM > Client would like to discuss therapy options. Is in grief counseling as his brother with the hospice that they were using. Please refer for further assistance. Thank you. Clinical Notes Selam Morris 02:12:15 PM >Spoke with client on the phone re: referral. Please see additional note. Referral Priority Routine Medications Medication SIG (Take, Route, Frequency, Duration) Notes Start Date End Date Status Venlafaxine HCl ER 75 MG 1 capsule with food Orally Once a day for 30 days in the morning Active Nortriptyline HCl 10 MG 1 capsule at bed time Oral Once a day for 7 days Active Cyclobenzaprine HCl 5 MG Oral for 30 Days Active Social History Tobacco Use: Social History Observation Description Date Details (start date - stop date) Never Smoker NA - NA Sex Assigned At : Social History Observation Description Sex Assigned At Male Tobacco Control (Standard) Question Answer Notes Tobacco use: Nonsmoker Problems Problem Type SNOMED Code ICD Code Onset Dates Problem Status W/U Status Risk Notes Problem Generalized anxiety disorder (71474339) Generalized anxiety disorder (F41.1) Active confirmed Problem Major depression (007544376) Major depression (F32.9) Active confirmed Problem Overweight (741241132) Over weight (E66.3) Active confirmed Problem Sleep disturbance (79641817) Sleep disturbance, unspecified (G47.9) Active confirmed Vital Signs Heart Rate 86 /min 10/10/2024 Temperature 98.2 degrees Fahrenheit 10/10/2024 Respiratory Rate 16 /min 10/10/2024 Blood pressure diastolic 80 mm Hg 10/10/2024 Oximetry 98 % 10/10/2024 Height 70 in 10/10/2024 Blood pressure systolic 128 mm Hg 10/10/2024 Weight 185.4 lbs 10/10/2024 BMI 26.6 kg/m2 10/10/2024 Encounters Encounter Location Date Provider Diagnosis [address] [place] [address] 06/01/2024 Heidi Allen Major depression F32.9 ; Generalized anxiety disorder F41.1 ; Sleep disturbance, unspecified G47.9 and Cannabis use disorder F12.[address] [place] [address] 06/28/2024 Heidi Allen Generalized anxiety disorder F41.1 ; Major depression F32.9 ; Sleep disturbance, unspecified G47.9 and Cannabis use disorder F12.[address] [place] [address] 07/21/2024 Heidi Allen Generalized anxiety disorder F41.1 ; Major depression F32.9 ; Sleep disturbance, unspecified G47.9 and Cannabis use disorder F12.[address] [place] [address] 09/14/2024 Heidi Allen Generalized anxiety disorder F41.1 ; Major depression F32.9 ; Sleep disturbance, unspecified G47.9 and Cannabis use disorder F12.[address] [place] [address] 09/27/2024 Selam Morris Major depression F32.9 and Generalized anxiety disorder F41.[address] [facility] [place] [place] [address] 10/10/2024 Heidi Allen Generalized anxiety disorder F41.1 ; Major depression F32.9 ; Sleep disturbance, unspecified G47.9 ; Cannabis use disorder F12.90 and Over weight E66.[address] [place] [address] 06/01/2024 Heidi Allen [facility] [address] [place] [address] 07/08/2024 Heidi Allen Assessments Encounter Date Diagnosis (ICD Code) Assessment Notes Treatment Notes Treatment Clinical Notes Section Notes 10/10/2024 Generalized anxiety disorder (ICD-10 - F41.1) Continue therapy 09/27/2024 Major depression (ICD-10 - F32.9) 07/21/2024 Generalized anxiety disorder (ICD-10 - F41.1) Continue therapy 06/28/2024 Generalized anxiety disorder (ICD-10 - F41.1) Continue therapy 09/14/2024 Generalized anxiety disorder (ICD-10 - F41.1) Continue therapy 06/01/2024 Generalized anxiety disorder (ICD-10 - F41.1) Continue therapy 06/01/2024 Major depression (ICD-10 - F32.9) Discussed r/b/se. 06/01/2024 Sleep disturbance, unspecified (ICD-10 - G47.9) Discussed r/b/se, decreasing. May look to stop and start more sleep-specific medication depending on how client is doing with med adjustments and sleep. 09/27/2024 Generalized anxiety disorder (ICD-10 - F41.1) 09/14/2024 Major depression (ICD-10 - F32.9) Lexapro with mild overactive bladder, conserned for sexual side effects- changed to SNRI; discussed risks are similar but have been less likely in practice,increasing venlafaxine ER. Hx of Cymbalta, Wellbutrin, Lexapro Lexapro with mild overactive bladder, conserned for sexual side effects 06/28/2024 Major depression (ICD-10 - F32.9) Continue current dose, monitoring depression. Discussed r/b/se. 07/21/2024 Major depression (ICD-10 - F32.9) Lexapro with mild overactive bladder, conserned for sexual side effects- changing to SNRI; discussed risks are similar but have been less likely in practice, starting venlafaxine ER. Client v/u and wants to try this medication. Hx of Cymbalta, Wellbutrin, Lexapro Lexapro with mild overactive bladder, conserned for sexual side effects 10/10/2024 Major depression (ICD-10 - F32.9) Lexapro with mild overactive bladder, conserned for sexual side effects- changed to SNRI; discussed risks are similar but have been less likely in practice, continue venlafaxine ER. Hx of Cymbalta, Wellbutrin, Lexapro Lexapro with mild overactive bladder, conserned for sexual side effects 10/10/2024 Sleep disturbance, unspecified (ICD-10 - G47.9) Decreasing due to poor efficacy, discussed possible increase in ambien to 10mg, may discuss with PCP that prescribed the med and let this provider know if changes are made. May look to stop and start more sleep-specific medication depending on how client is doing with med adjustments and sleep. 07/21/2024 Sleep disturbance, unspecified (ICD-10 - G47.9) Reports doing well at this time. May look to stop and start more sleep-specific medication depending on how client is doing with med adjustments and sleep. 06/28/2024 Sleep disturbance, unspecified (ICD-10 - G47.9) Reports doing well at this time. May look to stop and start more sleep-specific medication depending on how client is doing with med adjustments and sleep. 09/14/2024 Sleep disturbance, unspecified (ICD-10 - G47.9) Reports coping well at this time. May look to stop and start more sleep-specific medication depending on how client is doing with med adjustments and sleep. 06/01/2024 Cannabis use disorder (ICD-10 - F12.90) Discussed with patient that taking or using herbs, such as marijuana, and/or vitamins and supplements may interfere with or alter the way prescription medications work in the body or cause adverse reactions. Patient voiced understanding. Strongly encouraged to cut back. Client has concerns regarding attention. Discussed treating mood disorder, anxiety, then treating any substance use, then discussing attention/conc entration. 09/14/2024 Cannabis use disorder (ICD-10 - F12.90) Discussed with patient that taking or using herbs, such as marijuana, and/or vitamins and supplements may interfere with or alter the way prescription medications work in the body or cause adverse reactions. Patient voiced understanding. Strongly encouraged to cut back. Client has concerns regarding attention. Discussed treating mood disorder, anxiety, then treating any substance use, then discussing attention/conc entration. 06/28/2024 Cannabis use disorder (ICD-10 - F12.90) Discussed with patient that taking or using herbs, such as marijuana, and/or vitamins and supplements may interfere with or alter the way prescription medications work in the body or cause adverse reactions. Patient voiced understanding. Strongly encouraged to cut back. Client has concerns regarding attention. Discussed treating mood disorder, anxiety, then treating any substance use, then discussing attention/conc entration. 07/21/2024 Cannabis use disorder (ICD-10 - F12.90) Discussed with patient that taking or using herbs, such as marijuana, and/or vitamins and supplements may interfere with or alter the way prescription medications work in the body or cause adverse reactions. Patient voiced understanding. Strongly encouraged to cut back. Client has concerns regarding attention. Discussed treating mood disorder, anxiety, then treating any substance use, then discussing attention/conc entration. 10/10/2024 Cannabis use disorder (ICD-10 - F12.90) Discussed with patient that taking or using herbs, such as marijuana, and/or vitamins and supplements may interfere with or alter the way prescription medications work in the body or cause adverse reactions. Patient voiced understanding. Strongly encouraged to cut back. Client has concerns regarding attention. Discussed treating mood disorder, anxiety, then treating any substance use, then discussing attention/conc entration. 10/10/2024 Over weight (ICD-10 - E66.3) 06/01/2024 Other Reasons, potential benefits, potential risks, interactions and side effects of all medications were discussed. The Patient/Guardian asked appropriate questions, appeared to understand the answers, and decided to accept the treatment and continue being followed. Alternatives and expected course without treatment were reviewed. The Patient/Guardian is aware of the need to contact the office or return for an earlier appointment if any problems or concerns arise. May also contact the 24-hour crisis hotline ([facility]), refer to the closest emergency room or call 911 if new symptoms arise of existing symptoms worsen. The Patient/Guardian is aware that this would apply to symptoms like: suicidal ideation, homicidal ideation, high risk behaviors, manic symptoms, psychotic symptoms, physical symptoms, or any other symptoms that may be dangerous to self or others. Greater than 50% of time spent on coordination and counseling where psychopharmacology as well as psychotherapeutic interventions were discussed along with review of treatments in the past. Education provided concerning need for adequate hydration. Patient/Guardian verbalized understanding of education, treatment plan and follow up. This session was completed telephonically with client/parental/guard davina consent: Unable to determine movement status, assess appearance, affect, AIMS, or vital signs. 06/28/2024 Other Reasons, potential benefits, potential risks, interactions and side effects of all medications were discussed. The Patient/Guardian asked appropriate questions, appeared to understand the answers, and decided to accept the treatment and continue being followed. Alternatives and expected course without treatment were reviewed. The Patient/Guardian is aware of the need to contact the office or return for an earlier appointment if any problems or concerns arise. May also contact the 24-hour crisis hotline ([facility]), refer to the closest emergency room or call 911 if new symptoms arise of existing symptoms worsen. The Patient/Guardian is aware that this would apply to symptoms like: suicidal ideation, homicidal ideation, high risk behaviors, manic symptoms, psychotic symptoms, physical symptoms, or any other symptoms that may be dangerous to self or others. Greater than 50% of time spent on coordination and counseling where psychopharmacology as well as psychotherapeutic interventions were discussed along with review of treatments in the past. Education provided concerning need for adequate hydration. Patient/Guardian verbalized understanding of education, treatment plan and follow up. This session was completed telephonically with client/parental/guard davina consent: Unable to determine movement status, assess appearance, affect, AIMS, or vital signs. 07/21/2024 Other Reasons, potential benefits, potential risks, interactions and side effects of all medications were discussed. The Patient/Guardian asked appropriate questions, appeared to understand the answers, and decided to accept the treatment and continue being followed. Alternatives and expected course without treatment were reviewed. The Patient/Guardian is aware of the need to contact the office or return for an earlier appointment if any problems or concerns arise. May also contact the 24-hour crisis hotline ([facility]), refer to the closest emergency room or call 911 if new symptoms arise of existing symptoms worsen. The Patient/Guardian is aware that this would apply to symptoms like: suicidal ideation, homicidal ideation, high risk behaviors, manic symptoms, psychotic symptoms, physical symptoms, or any other symptoms that may be dangerous to self or others. Greater than 50% of time spent on coordination and counseling where psychopharmacology as well as psychotherapeutic interventions were discussed along with review of treatments in the past. Education provided concerning need for adequate hydration. Patient/Guardian verbalized understanding of education, treatment plan and follow up. This session was completed telephonically with client/parental/guard davina consent: Unable to determine movement status, assess appearance, affect, AIMS, or vital signs. 09/14/2024 Other Reasons, potential benefits, potential risks, interactions and side effects of all medications were discussed. The Patient/Guardian asked appropriate questions, appeared to understand the answers, and decided to accept the treatment and continue being followed. Alternatives and expected course without treatment were reviewed. The Patient/Guardian is aware of the need to contact the office or return for an earlier appointment if any problems or concerns arise. May also contact the 24-hour crisis hotline ([facility]), refer to the closest emergency room or call 911 if new symptoms arise of existing symptoms worsen. The Patient/Guardian is aware that this would apply to symptoms like: suicidal ideation, homicidal ideation, high risk behaviors, manic symptoms, psychotic symptoms, physical symptoms, or any other symptoms that may be dangerous to self or others. Greater than 50% of time spent on coordination and counseling where psychopharmacology as well as psychotherapeutic interventions were discussed along with review of treatments in the past. Education provided concerning need for adequate hydration. Patient/Guardian verbalized understanding of education, treatment plan and follow up. This session was completed telephonically with client/parental/guard davina consent: Unable to determine movement status, assess appearance, affect, AIMS, or vital signs. 10/10/2024 Other Reasons, potential benefits, potential risks, interactions and side effects of all medications were discussed. The Patient/Guardian asked appropriate questions, appeared to understand the answers, and decided to accept the treatment and continue being followed. Alternatives and expected course without treatment were reviewed. The Patient/Guardian is aware of the need to contact the office or return for an earlier appointment if any problems or concerns arise. May also contact the 24-hour crisis hotline ([facility]), refer to the closest emergency room or call 911 if new symptoms arise of existing symptoms worsen. The Patient/Guardian is aware that this would apply to symptoms like: suicidal ideation, homicidal ideation, high risk behaviors, manic symptoms, psychotic symptoms, physical symptoms, or any other symptoms that may be dangerous to self or others. Greater than 50% of time spent on coordination and counseling where psychopharmacology as well as psychotherapeutic interventions were discussed along with review of treatments in the past. Education provided concerning need for adequate hydration. Patient/Guardian verbalized understanding of education, treatment plan and follow up. Plan Of Treatment No Information Insurance Providers Payer Name Payer Address Payer Phone Subscriber Number Group Number Insured Name Patient Relationship to Insured Coverage Start Date Coverage End Date [facility] Attn Claims Department [address] [address] [phone] [id number] Fer Ryan Self - patient is the insured [facility] [address] [address] [id number] Fer Ryan Self - patient is the insured 4 [facility] Attn Claims Department [address] [address] [id number] Fer Ryan Self - patient is the insured 5 Medical (General) History Surgical History Surgery Date(Month/Year) abscess removed from abdomen
== END 2024-12-07 10:03 | disposition home or self-care (01) ==
PROVIDERS: PCP Nurse Practitioner Family; Visit Provider Nurse Practitioner Family
DX: M25.512 Pain in left shoulder (principal)
CPT/HCPCS: 73030

== ENCOUNTER 2025-01-20 10:25 | Emergency (ER) | payer OTHER, SELFPAY ==
[2025-01-20 10:29] VITALS: BP 119/73; PULSE 77; RESP 16; TEMP 36.9; O2SAT 98
--- OUTSIDE RECORDS SUMMARY | 2025-01-20 10:29 | XMS_ITS | Patient Health Record ---
Author Organization [facility] Address [address] [place] [address] Care Team Providers Care Deli Cutter Slicer Name Role Phone Heidi Allen Primary Care Provider Selam Morris Unavailable [phone] Allergies No Known Allergies Reason For Referral Reason Therapy Diagnosis 1 Major depression (F3 2.9) Diagnosis 2 Generalized anxiety disorder (F41.1) Referral Organization [facility] Referring Provider First Name Heidi Referring Provider Last Name Alejandro Referring Provider Speciality Psychiatry Referred Provider Specialty Behavioral H [facility] General Notes Heidi Allen 11/2024 02:12:54 PM [...] 1 capsule with food Orally Once a day; Duration: 30 days in the morning Active Nortriptyline HCl 10 MG 1 capsule at bed time Oral Once a day; Duration: 7 days Active Cyclobenzaprine HCl 5 MG Oral; Duration: 30 Days Active Social History Tobacco Use: Social History Observation Description Date Details (start date - stop date) Never Smoker NA - NA Sex Assigned At : Social History Observation Description Sex Assigned At Male Tobacco Control (Standard) Question Answer Notes Tobacco use: Nonsmoker Problems Problem Type SNOMED Code ICD Code Onset Dates Problem Status W/U Status Risk Notes Problem Generalized anxiety disorder (28097170) Generalized anxiety disorder (F41.1) Active confirmed Problem Major depression (256563201) Major depression (F32.9) Active confirmed Problem Overweight (918143379) Over weight (E66.3) Active confirmed Problem Sleep disturbance (49535860) Sleep disturbance, unspecified (G47.9) Active confirmed Vital Signs Heart Rate 86 /min 10/10/2024 Temperature 98.2 degrees Fahrenheit 10/10/2024 Respiratory Rate 16 /min 10/10/2024 Blood pressure diastolic 80 mm Hg 10/10/2024 Oximetry 98 % 10/10/2024 Height 70 in 10/10/2024 Blood pressure systolic 128 mm Hg 10/10/2024 Weight 185.4 lbs 10/10/2024 BMI 26.6 kg/m2 10/10/2024 Encounters Encounter Location Date Provider Diagnosis [address] [place] [address] 06/01/2024 Heidi Allen Major depression F32.9 ; Generalized anxiety disorder F41.1 ; Sleep disturbance, unspecified G47.9 and Cannabis use disorder F12.[address] [place] [address] 06/28/2024 Heidi Allen Generalized anxiety disorder F41.1 ; Major depression F32.9 ; Sleep disturbance, unspecified G47.9 and Cannabis use disorder F12.[address] [place] [address] 07/21/2024 Heidi Allen Generalized anxiety disorder F41.1 ; Major depression F32.9 ; Sleep disturbance, unspecified G47.9 and Cannabis use disorder F12.[address] [place] [address] 09/14/2024 Heidi Allen Generalized anxiety disorder F41.1 ; Major depression F32.9 ; Sleep disturbance, unspecified G47.9 and Cannabis use disorder F12.[address] [place] [address] 09/27/2024 Selam Morris Major depression F32.9 and Generalized anxiety disorder F41.[address] [place] [address] 10/10/2024 Heidi Allen Generalized anxiety disorder F41.1 ; Major depression F32.9 ; Sleep disturbance, unspecified G47.9 ; Cannabis use disorder F12.90 and Over weight E66.[address] [place] [address] 06/01/2024 Heidi Allen [facility] [address] [place] [address] 07/08/2024 Heidi Allen Assessments Encounter Date Diagnosis (ICD Code) Assessment Notes Treatment Notes Treatment Clinical Notes Section Notes 06/01/2024 Generalized anxiety disorder (ICD-10 - F41.1) Continue therapy 06/01/2024 Major depression (ICD-10 - F32.9) Discussed r/b/se. 06/28/2024 Generalized anxiety disorder (ICD-10 - F41.1) Continue therapy 07/21/2024 Generalized anxiety disorder (ICD-10 - F41.1) Continue therapy 09/14/2024 Generalized anxiety disorder (ICD-10 - F41.1) Continue therapy 09/27/2024 Major depression (ICD-10 - F32.9) 10/10/2024 Generalized anxiety disorder (ICD-10 - F41.1) Continue therapy 10/10/2024 Major depression (ICD-10 - F32.9) Lexapro with mild overactive bladder, conserned for sexual side effects- changed to SNRI; discussed risks are similar but have been less likely in practice, continue venlafaxine ER. Hx of Cymbalta, Wellbutrin, Lexapro Lexapro with mild overactive bladder, conserned for sexual side effects 09/27/2024 Generalized anxiety disorder (ICD-10 - F41.1) 09/14/2024 Major depression (ICD-10 - F32.9) Lexapro with mild overactive bladder, conserned for sexual side effects- changed to SNRI; discussed risks are similar but have been less likely in practice,increasing venlafaxine ER. Hx of Cymbalta, Wellbutrin, Lexapro Lexapro with mild overactive bladder, conserned for sexual side effects 07/21/2024 Major depression (ICD-10 - F32.9) Lexapro [...] Continue current dose, monitoring depression. Discussed r/b/se. 06/01/2024 Sleep disturbance, unspecified (ICD-10 [...] substance use, then discussing attention/conc entration. 06/28/2024 Sleep disturbance, unspecified (ICD-10 - G47.9) [...] is doing with med adjustments and sleep. 10/10/2024 Sleep disturbance, unspecified (ICD-10 - G47.9) Decreasing due to poor efficacy, discussed possible increase in ambien to 10mg, may discuss with PCP that prescribed the med and let this provider know if changes are made. May look to stop and start more sleep-specific medication depending on how client is doing with med adjustments and sleep. 10/10/2024 Cannabis use disorder (ICD-10 - F12.90) [...] May also contact the 24-hour crisis hotline ([facility]), refer to the closest emergency room or [...] May also contact the 24-hour crisis hotline ([facility]), refer to the closest emergency room or [...] May also contact the 24-hour crisis hotline ([facility]), refer to the closest emergency room or [...] May also contact the 24-hour crisis hotline ([facility]), refer to the closest emergency room or [...] Insured Coverage Start Date Coverage End Date [facility] Attn Claims Department [address] [address] [id number] Fer Ryan Self - patient is the insured 4 [facility] Attn Claims Department [address] [address] [id number] Fer Ryan Self - patient is the insured 4 [facility] Attn Claims Department [address] [address] [id number] Fer Ryan Self - patient is the insured 5 Medical (General) History Surgical History Surgery Date(Month/Year) abscess removed from abdomen
--- OUTSIDE RECORDS SUMMARY | 2025-01-20 10:29 | XMS_ITS | Clinical Summary ---
Author Organization [facility] Address [address] [place] [address] Phone Care Team Providers Care Junior Accountant Name Role Phone Madeline Dolan APRN, CNP [...] Comments Hepatitis C Virus (HCV) Screening 1987 Human Papillomavirus (HPV) Immunization (1 - Male 3-dose series) 2002 Hepatitis B Immunization (1 of 3 - 19+ 3-dose series) 2006 SARS-COV-2 Immunization ( season) 2024 05/08/2023, 06/14/2021, 10/21/2020, Additional history exists Influenza Immunization (#1) 2025 05/08/2023, 1 08/15/2021 Td Immunization Every 10 Years (Adults With [...] Insurance MEDICAID [employer] Care Teams Junior Accountant Relationship Specialty Start Date End Date Madeline Dolan APRN, CNP [address] [place], [place] [id number] PCP - General Advanced Practice Nurse 04/27/24 Donavan Teixeira MD [address] [facility] [address] [place] [address] Consulting Physician Urology 04/27/24
--- OUTSIDE RECORDS SUMMARY | 2025-01-20 10:29 | XMS_ITS | Referral Summary ---
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 Gender Identity Not on file Sexual Orientation Not on file Last Filed Vital Signs Vital Sign Reading Time Taken Comments Blood Pressure 147/95 07/29/2023 10:40 PM LITIGATION CLAIM REPRESENTATIVE Pulse 83 07/29/2023 10:40 PM LITIGATION CLAIM REPRESENTATIVE Temperature 36.5 C (97.7 F) 07/29/2023 7:50 PM LITIGATION CLAIM REPRESENTATIVE Respiratory Rate 16 07/29/2023 10:40 PM LITIGATION CLAIM REPRESENTATIVE Oxygen Saturation 100% 07/29/2023 10:40 PM LITIGATION CLAIM REPRESENTATIVE Inhaled Oxygen Concentration - - Weight 81.6 kg (180 lb) 07/29/2023 7:50 PM LITIGATION CLAIM REPRESENTATIVE Height 172.7 cm (5' 8) 06/02/2023 12:19 PM LITIGATION CLAIM REPRESENTATIVE Body Mass Index 27.37 06/02/2023 12:19 PM LITIGATION CLAIM REPRESENTATIVE Plan of Treatment Not on file Insurance [facility] Care Teams Advertising Statistical Clerk Relationship Specialty Start Date End Date Madeline Dolan NP [address] [place], [place] [id number] PCP - General Family Medicine 06/02/23
--- OUTSIDE RECORDS SUMMARY | 2025-01-20 10:29 | XMS_ITS | Clinical Summary ---
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 Gender Identity Not on file Sexual Orientation Not on file Obstetrics History Last Filed Vital Signs Vital Sign Reading Time Taken Comments Blood Pressure 147/95 07/29/2023 10:40 PM HAIRSPRING SETTER Pulse 83 07/29/2023 10:40 PM HAIRSPRING SETTER Temperature 36.5 C (97.7 F) 07/29/2023 7:50 PM HAIRSPRING SETTER Respiratory Rate 16 07/29/2023 10:40 PM HAIRSPRING SETTER Oxygen Saturation 100% 07/29/2023 10:40 PM HAIRSPRING SETTER Inhaled Oxygen Concentration - - Weight 81.6 kg (180 lb) 07/29/2023 7:50 PM HAIRSPRING SETTER Height 172.7 cm (5' 8) 06/02/2023 12:19 PM HAIRSPRING SETTER Body Mass Index 27.37 06/02/2023 12:19 PM HAIRSPRING SETTER Plan of Treatment Health Maintenance Due Date [...] patient's age to complete this topic Insurance [facility] Care Teams Manager School Relationship Specialty Start Date End Date Madeline Dolan NP [address] [place] [address] PCP - General Family Medicine 06/02/23
--- NOTE | 2025-01-20 10:54 | ED_ITS ---
HPI - Skin/Abscess/Foreign Bdy General Chief complaint: Skin/Abscess/Foreign Body Stated complaint: Rash Time Seen by Provider: 01/20/25 10:40 Source: patient and RN notes reviewed Mode of arrival: ambulatory Limitations: no limitations History of Present Illness HPI narrative: 39-year-old male presents Express Care complaining rash his body. Patient said that occurred approximately 3-4 days ago. Patient believes he got in contact with poison lydia. Patient has a vesicular papular pruritic rash his right upper arm her left lower ankle and scantly throughout his bilateral forearms. Patient has been using been Benadryl cream with some relief. Patient wants to make sure he does not have a skin infection. Patient denies any pain, fevers, body aches, chills, nausea, vomiting, or any other concerns. Related Data Allergies Allergy/AdvReac Type Severity Reaction Status Date / Time No Known Allergies Allergy Mild Verified 11/11/24 12:53 Review of Systems Review of Systems: CONSTITUTIONAL: Denies fever, chills, body aches, or sweats. EYES: Denies visual changes, redness, or discharge. ENT: Denies rhinorrhea, congestion, sore throat, or otalgia. CARDIOVASCULAR: Denies chest pain, palpitations, or edema. RESPIRATORY: Denies cough or dyspnea. GASTROINTESTINAL: Denies abdominal pain, nausea, vomiting, or diarrhea. GENITOURINARY: Denies dysuria or hematuria. SKIN: Positive for rash and itching. MUSCULOSKELETAL: Denies back pain, joint pain, or myalgia. NEUROLOGIC: Denies headache, numbness, or weakness. PSYCHIATRIC: Denies anxiety or depression. All other systems reviewed are negative, except as documented in HPI. [facility] Past Medical History Medical History Epididymal cyst Insect bite of leg, right Left groin pain Left testicular pain Lipoma of abdominal wall Encounter for surgical aftercare following surgery on the skin and subcutaneous tissue Abdominal mass, right upper quadrant Chronic neck pain Encounter for preventative adult health care examination Tobacco dependence Family history of aortic aneurysm STD exposure Surgical History Surgical History History of excision of mass excisional biopsy right upper abdominal mass measuring approximately 5 x 4 cm on 03/18/23 PDC Family History Family History Mother Asthma Sibling Family history of heart disease in male family member before age 55 Father Acute myocardial infarction Social History Social History Smoking packs per day: 0.25 Smoking cigarettes per day: 5.0 Years smoked: 6 Smoking pack-years: 1.50 Smoking status: Current every day smoker Tobacco type: e-cigarettes/vaping Second hand tobacco smoke exposure: No Additional smoking assessment comments: VAPING FOR 2 YEARS Alcohol intake: current Drinks per week: 1 Alcohol use details: occasional Substance use: current Substance use type: marijuana Other substance usage details: NIGHTLY Lack of Transportation: No Lack of Food: Never True Current Housing: I Have Housing Concerned About Future Housing: No Difficulty Paying Gas/Electric Bills: No Difficulty Paying for Meds: No Currently Unemployed: No Education: High School Diploma/GED Difficulty w/ Childcare or Family Care: No Living arrangements: alone Agree to blood products: Yes Comments At the time of my signature, I reviewed and agree with the nursing past medical, surgical, social, and family history. There is no relevant family history pe rtinent to the patient complaint. Exam Narrative: GENERAL: This is a well-nourished, well-developed adult, in no apparent distress. They are non ill-appearing, nontoxic appearing. HEAD: normocephalic, atraumatic. EYES: Sclera clear/white. Conjunctiva normal. Vision is grossly intact. Extraocular movements intact EARS: External ears normal,Hearing grossly intact. NOSE: External nose normal THROAT: Mucous membranes moist, NECK: Neck supple, CARDIOVASCULAR: Regular rate and rhythm RESPIRATORY: Respiratory rate normal, respiratory effort nonlabored, no respiratory distress SKIN: There is a erythematous papular and vesicular pruritic rash scattered throughout the patient's right upper arm, left medial ankle, and scantly to patient's bilateral forearms. No exudate, very fluctuance, no induration, skin is not hot to touch. Rash is nontender. NEURO: awake, alert, and oriented to person, place and time. There were no obvious focal neurologic abnormalities. EXTREMITIES: No joint tenderness, effusion, or edema noted. Course Course Emergency Course: Portions of this record may have been created with voice recognition software Level of Care: Express Care Visit Vital Signs Vital signs: Vital Signs Temperature 98.4 F 01/20/25 10:29 Pulse Rate 77 01/20/25 10:29 Respiratory Rate 16 01/20/25 10:29 Blood Pressure 119/73 01/20/25 10:29 Pulse Oximetry 98 01/20/25 10:29 Oxygen Delivery Room Air 01/20/25 10:29 Temperature 98.4 F 01/20/25 10:29 Pulse Rate 77 01/20/25 10:29 Respiratory Rate 16 01/20/25 10:29 Blood Pressure 119/73 01/20/25 10:29 Pulse Oximetry 98 01/20/25 10:29 Oxygen Delivery Room Air 01/20/25 10:29 Reviewed MDM - Skin/Abscess/Foreign Bdy MDM Narrative Medical decision making narrative: Rash consistent with poison lydia contact dermatitis. Rash is less than 10% of patient's total body surface area, will treat with clobetasol cream. Advised patient not apply the steroid cream to his face. No rash present to his face either. Discussed physical exam findings. Advised supportive measures and signs/symptoms to go to the ER. Pt is appropriate for outpt treatment and f/u. Differential Diagnosis Differential diagnosis: Likely cellulitis, eczema and contact dermatitis Critical Care Time Critical Care Time Critical Care Time: No Discharge Plan Discharge Clinical Impression: Poison lydia Patient Disposition: Home Condition: Stable Instructions: Poison Lydia (ED) Additional Instructions: Use the clobetasol cream as directed. If the rash persist you may use the steroid cream for up to 2 weeks. Do not apply the steroid cream to her face. You may use [id number] Tecnu soap as directed on the bottle to help remove the oils from poison lydia off your skin. You may use calamine lotion, camphor, hydrocortisone cream Benadryl cream as needed for itchiness symptoms. You may also take Zyrtec or Claritin as needed for allergy or itchiness symptoms. Follow-up PCP in 3-5 days. If you develop any worsening redness, swelling, discharge, fevers, breathing problems, or any other concerns please go to the ER immediately. Patient Language: Rw[place] Prescriptions: New clobetasol 0.05 % cream 1 applic topical BID 7 Days Qty: 30 0RF Follow-up/Referrals: Madeline Dolan APRN [Primary Care Provider] - Time of Disposition: 10:52
== END 2025-01-20 10:56 | disposition home or self-care (01) ==
PROVIDERS: PCP Nurse Practitioner Family
DX: L23.7 Allergic contact dermatitis due to plants, except food (principal); F17.210 Nicotine dependence, cigarettes, uncomplicated; F17.290 Nicotine dependence, other tobacco product, uncomplicated; F12.90 Cannabis use, unspecified, uncomplicated
CPT/HCPCS: 99213; G0463